=== PATIENT | female | born 1955 | race Caucasian/White ===

== ENCOUNTER 2017-10-22 14:54 | Inpatient (IN) | payer OTHER ==
[2017-10-22] MEDS ORDERED: BISACODYL (EC) 5 MG TAB PO (15:30)
[2017-10-22] MEDS ORDERED: ACETAMINOPHEN 325 MG TAB PO (15:30)
[2017-10-22] MEDS ORDERED: LORAZEPAM 0.5 MG TAB PO (15:30)
[2017-10-22] MEDS ORDERED: NACL 0.9% 3 ML SYG IV (15:30)
[2017-10-22] MEDS ORDERED: GLUCOSE GEL 15 GRAM TUBE BUCCAL (16:00)
[2017-10-22] MEDS ORDERED: GLUCAGON 1 MG INJ IM (16:00)
[2017-10-22] MEDS ORDERED: GLUCOSE GEL 15 GRAM TUBE PO (16:00)
[2017-10-22] MEDS ORDERED: DEXTROSE 50% 50 ML SYRINGE IV ×2 (16:00)
[2017-10-22] MEDS: CEFTRIAXONE 1 GM/50 ML (PMX) 50 ML IVPB (16:14)
[2017-10-22] MEDS: SOD CHLORIDE 0.45% 1,000 ML IV (16:14)
[2017-10-22 16:37] LABS: ALBUMIN 2.8 g/dl (3.3-4.9); ANION GAP 13 (8-16); BLOOD UREA NITROGEN 56 mg/dl (7-20); CALCIUM 8.6 mg/dl (8.4-10.2); CARBON DIOXIDE 20 mmol/L (21-31); CHLORIDE 106 mmol/L (97-110); CREATININE 1.65 mg/dl (0.44-1.00); GLUCOSE 178 mg/dl (70-220); PHOSPHORUS 3.2 mg/dl (2.5-4.9); POTASSIUM 3.3 mmol/L (3.5-5.1); SODIUM 136 mmol/L (135-144)
[2017-10-22] MEDS: INSULIN ASPART [NOVOLOG] 3 ML PEN SC ×2 (17:33→21:00)
[2017-10-22] MEDS ORDERED: POTASSIUM CHLORIDE 50 ML IVPB (18:00)
[2017-10-22] MEDS: POTASSIUM CHLORIDE 40 MEQ in DEXTROSE 5% 250 ML IV (20:07)
[2017-10-22] MEDS: FAMOTIDINE 20 MG INJ IV (21:07)
[2017-10-22] MEDS: HEPARIN 5,000 UNIT/0.5 ML VIAL SC (22:03)
[2017-10-23] MEDS: ACCU-CHEK XX (02:02)
[2017-10-23] MEDS: ONDANSETRON 4 MG INJ IV (02:44)
[2017-10-23] MEDS: morphine 2 MG INJ IV (02:45)
[2017-10-23] MEDS: HEPARIN 5,000 UNIT/0.5 ML VIAL SC ×3 (06:08→21:53)
[2017-10-23 06:28] LABS: HEMATOCRIT 22.8 % (37.0-47.0); HEMOGLOBIN 7.9 g/dl (12.0-16.0); MEAN CORPUSCULAR HEMOGLOBIN 29.5 pg (29.0-33.0); MEAN CORPUSCULAR HGB CONC 34.6 g/dl (32.0-37.0); MEAN CORPUSCULAR VOLUME 85.1 fl (82.0-101.0); MEAN PLATELET VOLUME 10.6 fl (7.4-10.4); PLATELET COUNT 225 10^3/UL (140-415); RED BLOOD COUNT 2.68 10^6/ul (4.20-5.40); RED CELL DISTRIBUTION WIDTH 13.9 % (11.5-14.5)
[2017-10-23 06:28] LABS: WHITE BLOOD COUNT 19.1 10^3/ul (4.8-10.8)
[2017-10-23 07:14] LABS: ALBUMIN/GLOBULIN RATIO 0.77; ANION GAP 14 (8-16); LDL CHOLESTEROL,CALCULATED 125 mg/dl
[2017-10-23 07:16] LABS: ALANINE AMINOTRANSFERASE 38 IU/L (13-69); ALBUMIN 2.7 g/dl (3.3-4.9); ALKALINE PHOSPHATASE 441 IU/L (42-121); ASPARTATE AMINO TRANSFERASE 27 IU/L (15-46); BILIRUBIN,INDIRECT 0.4 mg/dl (0-1.1); BLOOD UREA NITROGEN 51 mg/dl (7-20); CALCIUM 8.2 mg/dl (8.4-10.2); CARBON DIOXIDE 18 mmol/L (21-31); CHLORIDE 107 mmol/L (97-110); CHOLESTEROL 171 mg/dl (100-200); CREATININE 1.65 mg/dl (0.44-1.00); GLUCOSE 114 mg/dl (70-220); HDL CHOLESTEROL 17 mg/dl (35-98); MAGNESIUM 2.2 mg/dl (1.7-2.5); POTASSIUM 3.9 mmol/L (3.5-5.1); SODIUM 135 mmol/L (135-144); TOTAL PROTEIN 6.2 g/dl (6.1-8.1); TRIGLYCERIDES 146 mg/dl (0-149)
[2017-10-23 07:17] LABS: ADD MAN DIFF? YES; POSITIVE DIFF @See below
[2017-10-23 07:26] LABS: HEMOGLOBIN A1C 6.9 % (0-5.9)
[2017-10-23] MEDS: INSULIN ASPART [NOVOLOG] 3 ML PEN SC ×4 (07:35→21:32)
[2017-10-23 07:41] LABS: ADD UMIC YES; UR AMORPHOUS CRYSTAL FEW /HPF (NONE SEEN); UR ASCORBIC ACID NEGATIVE (NEGATIVE); UR BACTERIA FEW /HPF (NONE SEEN); UR BILIRUBIN (Dip) NEGATIVE (NEGATIVE); UR BLOOD (Dip) 3+ mg/dL (NEGATIVE); UR CLARITY CLOUDY (CLEAR); UR COLOR AMBER (YELLOW); UR GLUCOSE (Dip) NEGATIVE (NEGATIVE); UR KETONES (Dip) NEGATIVE (NEGATIVE); UR LEUKOCYTE ESTERASE (Dip) 3+ Leu/ul (NEGATIVE); UR NITRITE (Dip) NEGATIVE (NEGATIVE); UR NONSQUAMOUS EPITHELIAL CELL 2 /HPF (NONE SEEN); UR RBC 9 /HPF (0-5); UR SPECIFIC GRAVITY (Dip) 1.012 (1.003-1.030); UR SQUAMOUS EPITHELIAL CELL FEW /HPF (FEW); UR TOTAL PROTEIN (Dip) 1+ mg/dl (NEGATIVE); UR UROBILINOGEN (Dip) 2+ mg/dL (NEGATIVE); UR WBC > 182 /HPF (0-5)
[2017-10-23] MEDS: FAMOTIDINE 20 MG INJ IV (08:29)
[2017-10-23] MEDS: ASPIRIN 81 MG TAB PO (08:29)
[2017-10-23] MEDS: SOD CHLORIDE 0.45% 1,000 ML IV (08:30)
[2017-10-23 09:49] LABS: ANISOCYTOSIS 1+ (0-0); BAND NEUTROPHILS #M 0.3 10^3/ul (0.0-0.6); BAND NEUTROPHILS % (M) 2 % (0-4); GIANT THROMBO% (M) 1 % (0-0); LYMPHOCYTES #M 1.1 10^3/ul (0.8-2.9); LYMPHOCYTES % (M) 6 % (15-51); MONOCYTE #M 0.9 10^3/ul (0.3-0.9); MONOCYTES % (M) 5 % (0-11); MYELOCYTES #M 0.1 10^3/ul (0.0-0.0); MYELOCYTES % (M) 1 % (0-0); PLATELET ESTIMATE NORMAL; PROMYELOCYTES #M 0.1 10^3/ul (0-0); PROMYELOCYTES % (M) 1 % (0-0); REACTIVE LYMPHOCYTES #M 0.1 10^3/ul (0.0-0.0); REACTIVE LYMPHOCYTES% (M) 1 % (0-0); SEG NEUT #M 16.1 10^3/ul (1.6-7.5); SEGMENTED NEUTROPHILS (M) % 84 % (39-77); SMUDGE%M 2 % (0-0)
[2017-10-23] MEDS: GLUCOSE GEL 15 GRAM TUBE PO (12:40)
[2017-10-23] MEDS: CEFTRIAXONE 1 GM/50 ML (PMX) 50 ML IVPB (15:40)
[2017-10-24] MEDS: SOD CHLORIDE 0.45% 1,000 ML IV ×2 (01:53→16:56)
[2017-10-24] MEDS: ACCU-CHEK XX (01:56)
[2017-10-24] MEDS: ONDANSETRON 4 MG INJ IV ×2 (02:02→20:30)
[2017-10-24] MEDS: morphine 2 MG INJ IV ×2 (04:33→11:43)
[2017-10-24 05:12] LABS: WHITE BLOOD COUNT 16.9 10^3/ul (4.8-10.8)
[2017-10-24 05:12] LABS: ABNORMAL IP MESSAGE 1; HEMATOCRIT 25.3 % (37.0-47.0); HEMOGLOBIN 8.4 g/dl (12.0-16.0); MEAN CORPUSCULAR HEMOGLOBIN 29.3 pg (29.0-33.0); MEAN CORPUSCULAR HGB CONC 33.2 g/dl (32.0-37.0); MEAN CORPUSCULAR VOLUME 88.2 fl (82.0-101.0); MEAN PLATELET VOLUME 10.6 fl (7.4-10.4); PLATELET COUNT 294 10^3/UL (140-415); RED BLOOD COUNT 2.87 10^6/ul (4.20-5.40); RED CELL DISTRIBUTION WIDTH 14.4 % (11.5-14.5)
[2017-10-24 05:25] LABS: ADD MAN DIFF? YES; POSITIVE DIFF @See below
[2017-10-24 05:34] LABS: ANION GAP 13 (8-16); BLOOD UREA NITROGEN 40 mg/dl (7-20); CALCIUM 8.5 mg/dl (8.4-10.2); CARBON DIOXIDE 19 mmol/L (21-31); CHLORIDE 108 mmol/L (97-110); CREATININE 1.44 mg/dl (0.44-1.00); GLUCOSE 178 mg/dl (70-220); MAGNESIUM 2.1 mg/dl (1.7-2.5); PHOSPHORUS 3.5 mg/dl (2.5-4.9); POTASSIUM 4.3 mmol/L (3.5-5.1); SODIUM 136 mmol/L (135-144)
[2017-10-24] MEDS: HEPARIN 5,000 UNIT/0.5 ML VIAL SC ×3 (06:06→22:26)
[2017-10-24] MEDS: INSULIN ASPART [NOVOLOG] 3 ML PEN SC ×4 (07:22→20:31)
[2017-10-24 07:35] LABS: ANISOCYTOSIS 1+ (0-0); BASOPHIL #M 0.3 10^3/ul (0.0-0.0); BASOPHILS % (M) 2 % (0-2); EOSINOPHILS % (M) 2 % (0-7); GIANT THROMBO% (M) 2 % (0-0); LYMPHOCYTES #M 1.8 10^3/ul (0.8-2.9); LYMPHOCYTES % (M) 11 % (15-51); MONOCYTE #M 0.8 10^3/ul (0.3-0.9); MONOCYTES % (M) 5 % (0-11); MYELOCYTES #M 0.3 10^3/ul (0.0-0.0); MYELOCYTES % (M) 2 % (0-0); PLATELET ESTIMATE NORMAL; POLYCHROMASIA 1+ (0-0); SEGMENTED NEUTROPHILS (M) % 78 % (39-77)
[2017-10-24] MEDS: ASPIRIN 81 MG TAB PO (08:15)
[2017-10-24 20:50] LABS: ADD UMIC YES; UR ASCORBIC ACID NEGATIVE (NEGATIVE); UR BACTERIA FEW /HPF (NONE SEEN); UR BILIRUBIN (Dip) NEGATIVE (NEGATIVE); UR BLOOD (Dip) 2+ mg/dL (NEGATIVE); UR CLARITY SLIGHTLY CLOUDY (CLEAR); UR COLOR YELLOW (YELLOW); UR GLUCOSE (Dip) NEGATIVE (NEGATIVE); UR KETONES (Dip) NEGATIVE (NEGATIVE); UR LEUKOCYTE ESTERASE (Dip) 3+ Leu/ul (NEGATIVE); UR NITRITE (Dip) NEGATIVE (NEGATIVE); UR RBC 1 /HPF (0-5); UR SQUAMOUS EPITHELIAL CELL FEW /HPF (FEW); UR TOTAL PROTEIN (Dip) 1+ mg/dl (NEGATIVE); UR UROBILINOGEN (Dip) 1+ mg/dL (NEGATIVE); UR WBC 69 /HPF (0-5)
[2017-10-24 21:00] LABS: SODIUM,URINE RANDOM 64 mmol/L (30-90)
[2017-10-25] MEDS: ACCU-CHEK XX (02:42)
[2017-10-25] MEDS: hydrALAzine 20 MG INJ IV ×2 (03:00→20:37)
[2017-10-25] MEDS: HEPARIN 5,000 UNIT/0.5 ML VIAL SC ×3 (05:24→22:42)
[2017-10-25 06:59] LABS: ALANINE AMINOTRANSFERASE 64 IU/L (13-69); ALBUMIN 2.7 g/dl (3.3-4.9); ALKALINE PHOSPHATASE 732 IU/L (42-121); ASPARTATE AMINO TRANSFERASE 91 IU/L (15-46); BILIRUBIN,INDIRECT 0.4 mg/dl (0-1.1); BILIRUBIN,TOTAL 0.5 mg/dl (0.2-1.3); TOTAL PROTEIN 6.7 g/dl (6.1-8.1)
[2017-10-25 07:09] LABS: ANION GAP 11 (8-16); BLOOD UREA NITROGEN 28 mg/dl (7-20); CALCIUM 8.3 mg/dl (8.4-10.2); CARBON DIOXIDE 19 mmol/L (21-31); CHLORIDE 109 mmol/L (97-110); CREATININE 1.33 mg/dl (0.44-1.00); GLUCOSE 154 mg/dl (70-220); MAGNESIUM 1.9 mg/dl (1.7-2.5); PHOSPHORUS 3.1 mg/dl (2.5-4.9); POTASSIUM 4.4 mmol/L (3.5-5.1); SODIUM 135 mmol/L (135-144)
[2017-10-25 07:14] LABS: PREALBUMIN 6.7 mg/dl (17.6-36.0)
[2017-10-25 08:00] LABS: LIPASE 424 U/L (23-300)
[2017-10-25] MEDS: SOD CHLORIDE 0.45% 1,000 ML IV ×2 (08:03→14:26)
[2017-10-25] MEDS: ASPIRIN 81 MG TAB PO (08:11)
[2017-10-25] MEDS: INSULIN ASPART [NOVOLOG] 3 ML PEN SC ×4 (08:13→20:21)
[2017-10-25] MEDS: HYDROCODONE/APAP (5/325) TAB PO (14:26)
[2017-10-25] MEDS ORDERED: TRIMETHOBENZAMIDE 300 MG CAP PO (18:30)
[2017-10-25] MEDS: PREDNISOLONE ACET 1% 5 ML OPH BOTH EYES (20:18)
[2017-10-25] MEDS: ALLOPURINOL 100 MG TAB PO (20:18)
[2017-10-26] MEDS: ACCU-CHEK XX (02:00)
[2017-10-26 05:08] LABS: ADD MAN DIFF? NO
[2017-10-26 05:10] LABS: BASOPHILS % 0.2 % (0.0-2.0); EOSINOPHILS # 0.2 10^3/ul (0.0-0.5); EOSINOPHILS % 1.2 % (0.0-7.0); HEMATOCRIT 24.5 % (37.0-47.0); HEMOGLOBIN 8.4 g/dl (12.0-16.0); LYMPHOCYTES # 1.4 10^3/ul (0.8-2.9); LYMPHOCYTES % 7.8 % (15.0-51.0); MEAN CORPUSCULAR HEMOGLOBIN 29.6 pg (29.0-33.0); MEAN CORPUSCULAR HGB CONC 34.3 g/dl (32.0-37.0); MEAN CORPUSCULAR VOLUME 86.3 fl (82.0-101.0); MONOCYTES % 5.4 % (0.0-11.0); NEUTROPHIL # 14.7 10^3/ul (1.6-7.5); NEUTROPHILS % 81.3 % (39.0-77.0); PLATELET COUNT 441 10^3/UL (140-415); RED BLOOD COUNT 2.84 10^6/ul (4.20-5.40); RED CELL DISTRIBUTION WIDTH 14.2 % (11.5-14.5)
[2017-10-26] MEDS: SOD CHLORIDE 0.45% 1,000 ML IV ×2 (05:19→21:07)
[2017-10-26] MEDS: HEPARIN 5,000 UNIT/0.5 ML VIAL SC ×3 (05:20→21:14)
[2017-10-26 05:43] LABS: ALANINE AMINOTRANSFERASE 91 IU/L (13-69); ALBUMIN 2.7 g/dl (3.3-4.9); ALBUMIN/GLOBULIN RATIO 0.65; ALKALINE PHOSPHATASE 815 IU/L (42-121); ANION GAP 14 (8-16); ASPARTATE AMINO TRANSFERASE 101 IU/L (15-46); BILIRUBIN,INDIRECT 0.3 mg/dl (0-1.1); BILIRUBIN,TOTAL 0.3 mg/dl (0.2-1.3); BLOOD UREA NITROGEN 25 mg/dl (7-20); CALCIUM 8.5 mg/dl (8.4-10.2); CARBON DIOXIDE 20 mmol/L (21-31); CHLORIDE 106 mmol/L (97-110); CREATININE 1.23 mg/dl (0.44-1.00); GLUCOSE 172 mg/dl (70-220); MAGNESIUM 1.8 mg/dl (1.7-2.5); PHOSPHORUS 3.5 mg/dl (2.5-4.9); POTASSIUM 4.9 mmol/L (3.5-5.1); SODIUM 135 mmol/L (135-144); TOTAL PROTEIN 6.8 g/dl (6.1-8.1)
[2017-10-26 05:56] LABS: PROTEIN, TOTAL 5.7 g/dL (6.1-8.1)
[2017-10-26] MEDS: INSULIN ASPART [NOVOLOG] 3 ML PEN SC ×4 (08:00→21:13)
[2017-10-26] MEDS: LINAGLIPTIN 5 MG TABLET PO (09:07)
[2017-10-26] MEDS: BENAZEPRIL 20 MG TAB PO (09:07)
[2017-10-26] MEDS: PREDNISOLONE ACET 1% 5 ML OPH BOTH EYES ×3 (09:07→21:07)
[2017-10-26] MEDS: ASPIRIN 81 MG TAB PO (09:07)
[2017-10-26] MEDS: ALLOPURINOL 100 MG TAB PO ×2 (09:07→21:07)
[2017-10-26] MEDS: LEVOFLOXACIN 250 MG TAB PO (13:18)
[2017-10-26 14:17] LABS: CREATININE, RANDOM URINE 50 mg/dL (20-320); PROTEIN/CREATININE RATIO 1260 mg/g creat (21-161)
[2017-10-26 16:31] LABS: ALBUMIN 2.2 g/dL (3.8-4.8); ALPHA-1-GLOBULINS 0.5 g/dL (0.2-0.3); ALPHA-2-GLOBULINS 0.9 g/dL (0.5-0.9); BETA 2 GLOBULINS 0.4 g/dL (0.2-0.5); BETA GLOBULINS 0.3 g/dL (0.4-0.6); GAMMA GLOBULINS 1.4 g/dL (0.8-1.7)
[2017-10-27] MEDS: ACCU-CHEK XX (01:22)
[2017-10-27] MEDS: HEPARIN 5,000 UNIT/0.5 ML VIAL SC (05:16)
[2017-10-27] MEDS: LEVOFLOXACIN 250 MG TAB PO (05:17)
[2017-10-27 05:46] LABS: ADD MAN DIFF? NO
[2017-10-27 05:54] LABS: BASOPHILS % 0.2 % (0.0-2.0); EOSINOPHILS # 0.2 10^3/ul (0.0-0.5); EOSINOPHILS % 1.1 % (0.0-7.0); HEMATOCRIT 22.5 % (37.0-47.0); HEMOGLOBIN 7.5 g/dl (12.0-16.0); LYMPHOCYTES # 1.4 10^3/ul (0.8-2.9); LYMPHOCYTES % 9.1 % (15.0-51.0); MEAN CORPUSCULAR HEMOGLOBIN 29.3 pg (29.0-33.0); MEAN CORPUSCULAR HGB CONC 33.3 g/dl (32.0-37.0); MEAN CORPUSCULAR VOLUME 87.9 fl (82.0-101.0); MONOCYTE # 0.9 10^3/ul (0.3-0.9); MONOCYTES % 5.6 % (0.0-11.0); NEUTROPHIL # 12.6 10^3/ul (1.6-7.5); NEUTROPHILS % 80.1 % (39.0-77.0); PLATELET COUNT 495 10^3/UL (140-415); RED BLOOD COUNT 2.56 10^6/ul (4.20-5.40); RED CELL DISTRIBUTION WIDTH 14.4 % (11.5-14.5)
[2017-10-27 05:54] LABS: WHITE BLOOD COUNT 15.7 10^3/ul (4.8-10.8)
[2017-10-27 06:33] LABS: ALANINE AMINOTRANSFERASE 92 IU/L (13-69); ALBUMIN 2.7 g/dl (3.3-4.9); ALBUMIN/GLOBULIN RATIO 0.67; ALKALINE PHOSPHATASE 778 IU/L (42-121); ANION GAP 12 (8-16); ASPARTATE AMINO TRANSFERASE 66 IU/L (15-46); BILIRUBIN,INDIRECT 0.3 mg/dl (0-1.1); BILIRUBIN,TOTAL 0.3 mg/dl (0.2-1.3); BLOOD UREA NITROGEN 21 mg/dl (7-20); CALCIUM 8.6 mg/dl (8.4-10.2); CARBON DIOXIDE 20 mmol/L (21-31); CHLORIDE 108 mmol/L (97-110); CREATININE 1.16 mg/dl (0.44-1.00); GLUCOSE 155 mg/dl (70-220); MAGNESIUM 1.7 mg/dl (1.7-2.5); PHOSPHORUS 3.6 mg/dl (2.5-4.9); POTASSIUM 4.3 mmol/L (3.5-5.1); SODIUM 136 mmol/L (135-144); TOTAL PROTEIN 6.7 g/dl (6.1-8.1)
[2017-10-27 07:29] LABS: HEPATITIS B SURFACE ANTIBODY NEGATIVE (NEGATIVE)
[2017-10-27 07:36] LABS: HEPATITIS B SURFACE ANTIGEN NEGATIVE (NEGATIVE)
[2017-10-27 07:53] LABS: HEPATITIS B CORE ANTIBODY NEGATIVE (NEGATIVE); HEPATITIS C VIRAL ANTIBODY NEGATIVE (NEGATIVE)
[2017-10-27] MEDS: INSULIN ASPART [NOVOLOG] 3 ML PEN SC ×4 (08:00→20:29)
[2017-10-27] MEDS: PREDNISOLONE ACET 1% 5 ML OPH BOTH EYES ×3 (08:02→20:27)
[2017-10-27] MEDS: ALLOPURINOL 100 MG TAB PO ×2 (08:03→20:27)
[2017-10-27] MEDS: BENAZEPRIL 20 MG TAB PO (08:03)
[2017-10-27] MEDS: ASPIRIN 81 MG TAB PO (08:03)
[2017-10-27] MEDS: LINAGLIPTIN 5 MG TABLET PO (08:03)
[2017-10-27] MEDS: INFLUENZA VIRUS VACCINE 0.5 ML (DISPENSING) IM* (11:56)
[2017-10-27] MEDS: SOD CHLORIDE 0.45% 1,000 ML IV ×2 (11:56→20:50)
[2017-10-27] MEDS: CIPROFLOXACIN 400MG/D5W 200 ML IVPB ×2 (15:50→23:31)
[2017-10-27] MEDS: FAMOTIDINE 20 MG INJ IV (15:50)
[2017-10-27] MEDS: metroNIDAZOLE 500 MG/NS (PMX) 100 ML IVPB ×2 (15:50→21:41)
[2017-10-28] MEDS: ACCU-CHEK XX (01:02)
[2017-10-28] MEDS: metroNIDAZOLE 500 MG/NS (PMX) 100 ML IVPB ×3 (05:13→22:28)
[2017-10-28 05:40] LABS: ADD MAN DIFF? NO
[2017-10-28 05:44] LABS: BASOPHILS % 0.2 % (0.0-2.0); EOSINOPHILS # 0.2 10^3/ul (0.0-0.5); EOSINOPHILS % 1.2 % (0.0-7.0); HEMOGLOBIN 7.4 g/dl (12.0-16.0); LYMPHOCYTES # 1.4 10^3/ul (0.8-2.9); LYMPHOCYTES % 9.6 % (15.0-51.0); MEAN CORPUSCULAR HEMOGLOBIN 29.8 pg (29.0-33.0); MEAN CORPUSCULAR HGB CONC 33.6 g/dl (32.0-37.0); MEAN CORPUSCULAR VOLUME 88.7 fl (82.0-101.0); MONOCYTE # 0.8 10^3/ul (0.3-0.9); MONOCYTES % 5.6 % (0.0-11.0); NEUTROPHIL # 11.7 10^3/ul (1.6-7.5); NEUTROPHILS % 79.5 % (39.0-77.0); PLATELET COUNT 520 10^3/UL (140-415); RED BLOOD COUNT 2.48 10^6/ul (4.20-5.40); RED CELL DISTRIBUTION WIDTH 14.6 % (11.5-14.5)
[2017-10-28 05:44] LABS: WHITE BLOOD COUNT 14.8 10^3/ul (4.8-10.8)
[2017-10-28 05:51] LABS: INR 1.04; PROTIME 13.7 Sec (11.9-14.9); PT RATIO 1.1
[2017-10-28 05:52] LABS: PARTIAL THROMBOPLASTIN TIME 29.9 Sec (25.0-35.0)
[2017-10-28 06:00] LABS: LIPASE 263 U/L (23-300)
[2017-10-28] MEDS: SOD CHLORIDE 0.45% 1,000 ML IV ×2 (06:51→19:49)
[2017-10-28 07:21] LABS: ALANINE AMINOTRANSFERASE 57 IU/L (13-69); ALBUMIN 2.6 g/dl (3.3-4.9); ALBUMIN/GLOBULIN RATIO 0.66; ALKALINE PHOSPHATASE 606 IU/L (42-121); ANION GAP 11 (8-16); ASPARTATE AMINO TRANSFERASE 25 IU/L (15-46); BILIRUBIN,INDIRECT 0.1 mg/dl (0-1.1); BILIRUBIN,TOTAL 0.1 mg/dl (0.2-1.3); BLOOD UREA NITROGEN 16 mg/dl (7-20); CALCIUM 8.5 mg/dl (8.4-10.2); CARBON DIOXIDE 18 mmol/L (21-31); CHLORIDE 110 mmol/L (97-110); CREATININE 1.06 mg/dl (0.44-1.00); GLUCOSE 175 mg/dl (70-220); MAGNESIUM 1.6 mg/dl (1.7-2.5); PHOSPHORUS 3.8 mg/dl (2.5-4.9); POTASSIUM 4.2 mmol/L (3.5-5.1); SODIUM 135 mmol/L (135-144); TOTAL PROTEIN 6.5 g/dl (6.1-8.1)
[2017-10-28 08:02] LABS: HEMOGLOBIN A1C 7.3 % (0-5.9)
[2017-10-28] MEDS: ALLOPURINOL 100 MG TAB PO ×2 (08:18→20:46)
[2017-10-28] MEDS: INSULIN ASPART [NOVOLOG] 3 ML PEN SC ×4 (08:18→20:46)
[2017-10-28] MEDS: FAMOTIDINE 20 MG INJ IV (08:19)
[2017-10-28] MEDS: PREDNISOLONE ACET 1% 5 ML OPH BOTH EYES ×3 (08:19→20:46)
[2017-10-28] MEDS: CIPROFLOXACIN 400MG/D5W 200 ML IVPB ×2 (08:19→20:46)
[2017-10-28] MEDS ORDERED: hydrALAzine 20 MG INJ IV (12:30)
[2017-10-28] MEDS: D5W-0.45 NACL + KCL 20 MEQ 1,000 ML IV (13:12)
[2017-10-28] MEDS: MAGNESIUM SULFATE 3 GM in DEXTROSE 5% 100 ML IVPB (14:34)
[2017-10-28 19:42] LABS: HEMATOCRIT 22.2 % (37.0-47.0); HEMOGLOBIN 7.5 g/dl (12.0-16.0)
[2017-10-28 23:36] LABS: IMMEDIATE SPIN CROSSMATCH 1 1
[2017-10-28] MEDS: hydrALAzine 20 MG INJ IV (23:57)
[2017-10-29] MEDS: INSULIN ASPART [NOVOLOG] 3 ML PEN SC ×6 (01:26→21:16)
[2017-10-29] MEDS: D5W-0.45 NACL + KCL 20 MEQ 1,000 ML IV ×2 (01:50→15:10)
[2017-10-29] MEDS: ACCU-CHEK XX (02:00)
[2017-10-29 04:53] LABS: ADD MAN DIFF? NO
[2017-10-29 05:05] LABS: BASOPHILS % 0.2 % (0.0-2.0); EOSINOPHILS # 0.2 10^3/ul (0.0-0.5); EOSINOPHILS % 1.7 % (0.0-7.0); HEMATOCRIT 25.9 % (37.0-47.0); HEMOGLOBIN 8.6 g/dl (12.0-16.0); LYMPHOCYTES # 1.5 10^3/ul (0.8-2.9); LYMPHOCYTES % 10.9 % (15.0-51.0); MEAN CORPUSCULAR HEMOGLOBIN 29.1 pg (29.0-33.0); MEAN CORPUSCULAR HGB CONC 33.2 g/dl (32.0-37.0); MEAN CORPUSCULAR VOLUME 87.5 fl (82.0-101.0); MEAN PLATELET VOLUME 9.7 fl (7.4-10.4); MONOCYTE # 0.8 10^3/ul (0.3-0.9); MONOCYTES % 5.4 % (0.0-11.0); NEUTROPHIL # 11.1 10^3/ul (1.6-7.5); PLATELET COUNT 602 10^3/UL (140-415); RED BLOOD COUNT 2.96 10^6/ul (4.20-5.40); RED CELL DISTRIBUTION WIDTH 14.7 % (11.5-14.5)
[2017-10-29 05:26] LABS: ALANINE AMINOTRANSFERASE 50 IU/L (13-69); ALBUMIN 2.8 g/dl (3.3-4.9); ALBUMIN/GLOBULIN RATIO 0.73; ALKALINE PHOSPHATASE 567 IU/L (42-121); ANION GAP 13 (8-16); ASPARTATE AMINO TRANSFERASE 18 IU/L (15-46); BILIRUBIN,INDIRECT 0.4 mg/dl (0-1.1); BILIRUBIN,TOTAL 0.4 mg/dl (0.2-1.3); BLOOD UREA NITROGEN 12 mg/dl (7-20); CALCIUM 8.6 mg/dl (8.4-10.2); CARBON DIOXIDE 21 mmol/L (21-31); CHLORIDE 111 mmol/L (97-110); CREATININE 1.06 mg/dl (0.44-1.00); GLUCOSE 223 mg/dl (70-220); IRON 55 ug/dl (35-150); PHOSPHORUS 3.6 mg/dl (2.5-4.9); POTASSIUM 4.5 mmol/L (3.5-5.1); SODIUM 140 mmol/L (135-144); TOTAL PROTEIN 6.6 g/dl (6.1-8.1)
[2017-10-29 05:34] LABS: LIPASE 254 U/L (23-300)
[2017-10-29 05:35] LABS: % IRON SATURATION 33 % SAT (22-52); TOTAL IRON BINDING CAPACITY 167 ug/dl (241-421)
[2017-10-29] MEDS: metroNIDAZOLE 500 MG/NS (PMX) 100 ML IVPB (05:38)
[2017-10-29] MEDS ORDERED: ROCURONIUM 50 MG INJ (07:33)
[2017-10-29] MEDS ORDERED: MIDAZOLAM 1 MG/ML 2 ML INJ (07:33)
[2017-10-29] MEDS ORDERED: PROPOFOL 20 ML (07:33)
[2017-10-29] MEDS ORDERED: LIDOCAINE 1% (MDV) 20 ML INJ (07:34)
[2017-10-29] MEDS ORDERED: ROPIVACAINE 0.2% 20 ML VIAL (07:39)
[2017-10-29] MEDS: SOD CHLORIDE 0.45% 1,000 ML IV (07:48)
[2017-10-29] MEDS ORDERED: CIPROFLOXACIN 400MG/D5W 200 ML (08:04)
[2017-10-29] MEDS ORDERED: FAMOTIDINE 20 MG INJ (08:10)
[2017-10-29] MEDS ORDERED: METOCLOPRAMIDE 10 MG INJ (08:10)
[2017-10-29] MEDS ORDERED: ONDANSETRON 4 MG INJ (08:10)
[2017-10-29] MEDS: BUPIVACAINE 0.25% (MPF) 30 ML INJ (08:22)
[2017-10-29] MEDS ORDERED: LABETALOL HCL 20MG INJ (08:35)
[2017-10-29] MEDS ORDERED: SUGAMMADEX SODIUM 200 MG/2 ML VIAL IV (08:43)
[2017-10-29] MEDS: PREDNISOLONE ACET 1% 5 ML OPH BOTH EYES ×3 (09:00→21:15)
[2017-10-29] MEDS: ALLOPURINOL 100 MG TAB PO ×2 (09:00→21:15)
[2017-10-29] MEDS ORDERED: HYDROmorphONE (0.2 MG/ML) 10ML SYG IV (09:00)
[2017-10-29] MEDS ORDERED: LABETALOL HCL 20MG INJ IV (09:00)
[2017-10-29] MEDS ORDERED: MEPERIDINE 25 MG INJ IV (09:00)
[2017-10-29] MEDS: CIPROFLOXACIN 400MG/D5W 200 ML IVPB (09:00)
[2017-10-29] MEDS ORDERED: OXYCODONE/ACETAMINOPHEN (5/325) TAB PO ×2 (09:00)
[2017-10-29] MEDS ORDERED: hydrALAzine 20 MG INJ IV (09:00)
[2017-10-29] MEDS ORDERED: morphine 2 MG INJ IV (09:00)
[2017-10-29] MEDS ORDERED: DIPHENHYDRAMINE 50 MG INJ IV (09:00)
[2017-10-29] MEDS ORDERED: ONDANSETRON 4 MG INJ IV (09:00)
[2017-10-29] MEDS: HYDROmorphONE (0.2 MG/ML) 10ML SYG IV (09:17)
[2017-10-29] MEDS: FAMOTIDINE 20 MG INJ IV (11:58)
[2017-10-29] MEDS ORDERED: PROCHLORPERAZINE 10 MG INJ IM (18:00)
[2017-10-29] MEDS ORDERED: INSULIN ASPART [NOVOLOG] 3 ML PEN SC (21:00)
[2017-10-29] MEDS: INSULIN GLARGINE [LANtus] 3 ML PEN SC (21:17)
[2017-10-30] MEDS: ACCU-CHEK XX (02:00)
[2017-10-30 05:50] LABS: ADD MAN DIFF? NO
[2017-10-30 05:58] LABS: BASOPHILS % 0.2 % (0.0-2.0); EOSINOPHILS # 0.1 10^3/ul (0.0-0.5); EOSINOPHILS % 0.7 % (0.0-7.0); HEMATOCRIT 24.2 % (37.0-47.0); HEMOGLOBIN 8.1 g/dl (12.0-16.0); LYMPHOCYTES # 1.4 10^3/ul (0.8-2.9); LYMPHOCYTES % 7.9 % (15.0-51.0); MEAN CORPUSCULAR HEMOGLOBIN 29.6 pg (29.0-33.0); MEAN CORPUSCULAR HGB CONC 33.5 g/dl (32.0-37.0); MEAN CORPUSCULAR VOLUME 88.3 fl (82.0-101.0); MEAN PLATELET VOLUME 9.8 fl (7.4-10.4); MONOCYTE # 0.8 10^3/ul (0.3-0.9); MONOCYTES % 4.4 % (0.0-11.0); NEUTROPHIL # 15.4 10^3/ul (1.6-7.5); PLATELET COUNT 599 10^3/UL (140-415); RED BLOOD COUNT 2.74 10^6/ul (4.20-5.40); RED CELL DISTRIBUTION WIDTH 15.9 % (11.5-14.5)
[2017-10-30] MEDS: D5W-0.45 NACL + KCL 20 MEQ 1,000 ML IV (06:17)
[2017-10-30 06:20] LABS: LIPASE 204 U/L (23-300)
[2017-10-30 06:27] LABS: ALANINE AMINOTRANSFERASE 44 IU/L (13-69); ALBUMIN 2.7 g/dl (3.3-4.9); ALBUMIN/GLOBULIN RATIO 0.71; ALKALINE PHOSPHATASE 445 IU/L (42-121); ANION GAP 11 (8-16); ASPARTATE AMINO TRANSFERASE 46 IU/L (15-46); BILIRUBIN,INDIRECT 0.2 mg/dl (0-1.1); BILIRUBIN,TOTAL 0.2 mg/dl (0.2-1.3); BLOOD UREA NITROGEN 11 mg/dl (7-20); CALCIUM 8.5 mg/dl (8.4-10.2); CARBON DIOXIDE 19 mmol/L (21-31); CHLORIDE 110 mmol/L (97-110); CREATININE 1.11 mg/dl (0.44-1.00); GLUCOSE 220 mg/dl (70-220); MAGNESIUM 1.8 mg/dl (1.7-2.5); PHOSPHORUS 3.7 mg/dl (2.5-4.9); POTASSIUM 4.7 mmol/L (3.5-5.1); SODIUM 135 mmol/L (135-144); TOTAL PROTEIN 6.5 g/dl (6.1-8.1)
[2017-10-30] MEDS: INSULIN ASPART [NOVOLOG] 3 ML PEN SC ×3 (08:09→17:29)
[2017-10-30] MEDS: FAMOTIDINE 20 MG INJ IV (08:54)
[2017-10-30] MEDS: ALLOPURINOL 100 MG TAB PO (08:54)
[2017-10-30] MEDS ORDERED: CEFTRIAXONE 1 GM INJ IM (09:00)
[2017-10-30] MEDS: PREDNISOLONE ACET 1% 5 ML OPH BOTH EYES ×2 (11:45→14:18)
[2017-10-31] MEDS ORDERED: LEVOFLOXACIN 500 MG TAB PO (06:00)
== END 2017-10-30 19:55 | disposition home or self-care (01) | DRG 418 ==
LOC: MS3 14:54 → PP2 10-24 18:47
PROC: 0FT44ZZ Resection of Gallbladder, Percutaneous Endoscopic Approach (ICD-10-PCS; principal; 2017-10-29 07:30)
PROC: 30233N1 Transfusion of Nonautologous Red Blood Cells into Peripheral Vein, Percutaneous Approach (ICD-10-PCS; 2017-10-29 07:41)
DX: K85.10 Biliary acute pancreatitis without necrosis or infection (principal); N17.9 Acute kidney failure, unspecified; E11.649 Type 2 diabetes mellitus with hypoglycemia without coma; E87.1 Hypo-osmolality and hyponatremia; K80.10 Calculus of gallbladder with chronic cholecystitis without obstruction; D64.9 Anemia, unspecified; I10 Essential (primary) hypertension; N30.90 Cystitis, unspecified without hematuria; Z22.322 Carrier or suspected carrier of Methicillin resistant Staphylococcus aureus; Z89.422 Acquired absence of other left toe(s)
CPT/HCPCS: 36430; 71045; 76705; 76775; 80048; 80053; 80061; 80069; 80076; 81001; 81003; 82306; 82570; 82962; 83036; 83540; 83690; 83735; 84100; 84134; 84155; 84156; 84165; 84166; 84300; 84443; 85014; 85018; 85025; 85610; 85730; 86704; 86706; 86708; 86709; 86803; 86850; 86900; 86901; 86920; 87081; 87086; 87340; 88304; 90686; 93005; 99217